=== PATIENT | female | born 1990 | race Caucasian/White ===

== ENCOUNTER 2017-05-23 15:40 | Emergency (ER) | payer OTHER ==
[2017-05-23] MEDS ORDERED: HYDROmorphone* 1 MG/ML 1 ML SYR IV ONE ×2 (17:38→21:29)
[2017-05-23] MEDS ORDERED: NS 0.9% 1000 ML* 1,000 ML IV ONE ×2 (17:38→21:29)
[2017-05-23] MEDS ORDERED: Ondansetron INJ* 2 MG/ML VIAL IV ONE ×2 (17:38→21:29)
[2017-05-23 17:46] LABS: Hematocrit 41 % (35-47); Hemoglobin 13.1 g/dl (12.0-16.0); Mean Corpuscular HGB Conc 32 g/dl (31-36); Mean Corpuscular Hemoglobin 29 pg (27-31); Mean Corpuscular Volume 90 fL (80-97); Mean Platelet Volume 10 um3 (7.4-10.4); Red Cell Distribution Width 13 % (10.5-15); White Blood Count 21.5 10^3/ul (3.5-10.8)
[2017-05-23 18:00] LABS: ALT 9 U/L (7-52); AST 15 U/L (13-39); Albumin 3.9 g/dL (3.2-5.2); Alkaline Phosphatase 47 U/L (34-104); Anion Gap 8 mmol/L (2-11); BUN/Creatinine Ratio 11.1 (8-20); Blood Urea Nitrogen 9 mg/dL (6-24); C Reactive Protein 45.86 mg/L (< 5.00); CO2 Carbon Dioxide 23 mmol/L (22-32); Calcium 9.3 mg/dL (8.6-10.3); Chloride 103 mmol/L (101-111); EGFR African American 109.9 (>60); EGFR Non-African American 85.5 (>60); Globulin 3.7 g/dL (2-4); Glucose 95 mg/dL (70-100); Lipase 21 U/L (11.0-82.0); Potassium 3.8 mmol/L (3.5-5.0); Sodium 134 mmol/L (133-145); Total Protein 7.6 g/dL (6.4-8.9)
[2017-05-23 18:02] LABS: Urine Bacteria Absent (Absent); Urine Bilirubin Negative (Negative); Urine Glucose Negative (Negative); Urine Nitrite Negative (Negative)
--- NOTE | 2017-05-23 19:16 | RAD ---
INDICATION: Flank pain. Diarrhea. COMPARISON: None TECHNIQUE: Noncontrast axial source images were acquired from the level hemidiaphragms to the symphysis pubis as part of CT imaging for renal stone. Lung bases: The lung bases are clear. Liver: The liver is enlarged with findings of hepatic steatosis. Noncontrast imaging shows no evidence of a hepatic mass or ductal dilatation. Gallbladder: There are no calcified gallstones. There is no evidence of wall thickening or pericholecystic fluid.. Spleen: The spleen is normal in size. The noncontrast CT appearance is normal. Pancreas: Noncontrast imaging shows no pancreatic mass or ductal dilitation. Adrenal glands: No masses are identified. Kidneys/Bladder: There is no evidence of nephrolithiasis or CT evidence of hydronephrosis. Noncontrast imaging shows no evidence of a renal mass. The bladder is unremarkable.. Adenopathy: There is no evidence of intraperitoneal or retroperitoneal adenopathy. Evaluation is limited without oral contrast. Fluid collections: There are no significant free or localized fluid collections. Vessels: The aorta and iliac vessels are normal in caliber. There are no significant atherosclerotic changes. The IVC appears normal Pelvic organs: The uterus and adnexa appear normal GI tract: Evaluation of the bowel is limited without oral contrast. The stomach, small bowel, and lower GI tract appear grossly normal. There are no obstructive findings. Soft tissues: No acute soft tissue abnormalities of the extraperitoneal abdomen or pelvis are identified. There is mild diastases of the rectus abdominis muscle fracture Osseous structures: There are no acute osseous findings. IMPRESSION: NO ACUTE CT FINDINGS. NO CT EVIDENCE OF UROLITHIASIS.
--- NOTE | 2017-05-23 21:28 | ED ---
Pollo Josue Thomas, scribed for Asim Nina MD on 05/23/17 at 1644 . Abdominal Pain/Female - HPI Summary HPI Summary: The pt is a 27 y/o F presenting to the ED c/o R-sided abd pain that began this AM at 06:30, which woke her up. The pain is rated 8/10. The pain is described as shooting and stabbing. She says that the pain comes in waves. The pain is aggravated by nothing. The pain is alleviated by lying down. Pt additionally c/ o diarrhea (watery) and decreased appetite. Pt denies dysuria, hematuria, and nausea. PMHx: previously healthy. PSHx: wisdom teeth removal. SHx: occasional drinking, no smoking, no illegal drugs. FHx: breast CA, DM. She is on control. Yesterday, she took the morning-after pill. Her last period was a few weeks ago. She did not eat today. - History of Current Complaint Chief Complaint: EDAbdPain Stated Complaint: ABD PAIN Time Seen by Provider: 05/23/17 16:32 Hx Obtained From: Patient Onset/Duration: Sudden Onset, Lasting Hours - 06:30 this AM, Still Present Timing: Constant - pain is constant, but it comes in waves Severity Currently: Severe Pain Intensity: 8 Pain Scale Used: 0-10 Numeric Location: Other - R side Character: Other: - Shooting, stsabbing Aggravating Factor(s): Other: - lying down Alleviating Factor(s): Nothing Associated Signs and Symptoms: Positive: Diarrhea - watery. Negative: Nausea, Other: - NEG: dysuria, hematuria Allergies/Adverse Reactions: Allergies Allergy/AdvReac Type Severity Reaction Status Date / Time No Known Allergies Allergy Verified 05/23/17 15:43 PMH/Surg Hx/FS Hx/Imm Hx Previously Healthy: Yes Endocrine/Hematology History: Denies: Hx Diabetes Cardiovascular History: Denies: Hx Hypertension - Surgical History Surgery Procedure, Year, and Place: wisdom teeth removal Infectious Disease History: Denies: Traveled Outside the [place] in Last 30 Days - Family History Known Family History: Positive: Diabetes, Other - POS: breast CA - Social History Alcohol Use: Occasionally Hx Substance Use: No Substance Use Type: Reports: None Hx Tobacco Use: No Smoking Status (MU): Never Smoked Tobacco Review of Systems Negative: Fever Positive: Abdominal Pain - onset today at 06:30, alleviated by lying down, shooting/stabbing, Diarrhea - watery, Other - POS: decreased appetite. Negative : Nausea Negative: dysuria, hematuria All Other Systems Reviewed And Are Negative: Yes Physical Exam Triage Information Reviewed: Yes Vital Signs On Initial Exam: Initial Vitals Temp Pulse Resp BP Pulse Ox 98.1 F 132 20 186/128 98 05/23/17 15:43 05/23/17 15:43 05/23/17 15:43 05/23/17 15:43 05/23/17 15:43 Vital Signs Reviewed: Yes Appearance: Positive: Well-Appearing, No Pain Distress Skin: Positive: Warm, Skin Color Reflects Adequate Perfusion, Dry Head/Face: Positive: Normal Head/Face Inspection Eyes: Positive: Normal ENT: Positive: Normal ENT inspection Neck: Positive: Supple, Nontender Respiratory/Lung Sounds: Positive: Clear to Auscultation, Breath Sounds Present Cardiovascular: Positive: RRR Abdomen Description: Positive: Soft, Other: - She is mildly tender to her R periumbilical region, but otherwise she is nontender. Bowel Sounds: Positive: Present Musculoskeletal: Positive: Normal Neurological: Positive: Normal Psychiatric: Positive: Normal, Affect/Mood Appropriate Diagnostics - Vital Signs Vital Signs Temp Pulse Resp BP Pulse Ox 05/23/17 15:43 98.1 F 132 20 186/128 98 - Laboratory Lab Results: Lab Results 05/23/17 05/23/17 05/23/17 Range/Units 17:15 17:15 17:15 WBC 21.5 H (3.5-10.8) 10^3/ul RBC 4.60 (4.0-5.4) 10^6/ul Hgb 13.1 (12.0-16.0) g/dl Hct 41 (35-47) % MCV 90 (80-97) fL MCH 29 (27-31) pg MCHC 32 (31-36) g/dl RDW 13 (10.5-15) % Plt Count 270 (150-450) 10^3/ul MPV 10 (7.4-10.4) um3 Neut % (Auto) 76.5 (38-83) % Lymph % (Auto) 18.9 L (25-47) % Mccormick % (Auto) 3.9 (1-9) % Eos % (Auto) 0.3 (0-6) % Baso % (Auto) 0.4 (0-2) % Absolute Neuts (auto) 16.4 H (1.5-7.7) 10^3/ul Absolute Lymphs (auto) 4.1 (1.0-4.8) 10^3/ul Absolute Monos (auto) 0.8 (0-0.8) 10^3/ul Absolute Eos (auto) 0.1 (0-0.6) 10^3/ul Absolute Basos (auto) 0.1 (0-0.2) 10^3/ul Absolute Nucleated RBC 0.01 10^3/ul Nucleated RBC % 0 Sodium 134 (133-145) mmol/L Potassium 3.8 (3.5-5.0) mmol/L Chloride 103 (101-111) mmol/L Carbon Dioxide 23 (22-32) mmol/L Anion Gap 8 (2-11) mmol/L BUN 9 (6-24) mg/dL Creatinine 0.81 (0.51-0.95) mg/dL Est GFR ( Amer) 109.9 (>60) Est GFR (Non-Af Amer) 85.5 (>60) BUN/Creatinine Ratio 11.1 (8-20) Glucose 95 (70-100) mg/dL Lactic Acid (0.5-2.0) mmol/L Calcium 9.3 (8.6-10.3) mg/dL Total Bilirubin 0.40 (0.2-1.0) mg/dL AST 15 (13-39) U/L ALT 9 (7-52) U/L Alkaline Phosphatase 47 (34-104) U/L C-Reactive Protein 45.86 H (< 5.00) mg/L Total Protein 7.6 (6.4-8.9) g/dL Albumin 3.9 (3.2-5.2) g/dL Globulin 3.7 (2-4) g/dL Albumin/Globulin Ratio 1.1 (1-3) Lipase 21 (11.0-82.0) U/L Beta HCG, Quant < 0.60 mIU/mL Urine Color Yellow Urine Appearance Cloudy Urine pH 5.0 (5-9) Ur Specific [place] 1.024 (1.010-1.030) Urine Protein Negative (Negative) Urine Ketones Negative (Negative) Urine Blood 1+ H (Negative) Urine Nitrate Negative (Negative) Urine Bilirubin Negative (Negative) Urine Urobilinogen Negative (Negative) Ur Leukocyte Esterase Trace H (Negative) Urine WBC (Auto) Trace(0-5/hpf) (Absent) Urine RBC (Auto) Trace(0-2/hpf) (Absent) Ur Squamous Epith Cells Present H (Absent) Urine Bacteria Absent (Absent) Urine Glucose Negative (Negative) 05/23/17 Range/Units 17:15 WBC (3.5-10.8) 10^3/ul RBC (4.0-5.4) 10^6/ul Hgb (12.0-16.0) g/dl Hct (35-47) % MCV (80-97) fL MCH (27-31) pg MCHC (31-36) g/dl RDW (10.5-15) % Plt Count (150-450) 10^3/ul MPV (7.4-10.4) um3 Neut % (Auto) (38-83) % Lymph % (Auto) (25-47) % Mccormick % (Auto) (1-9) % Eos % (Auto) (0-6) % Baso % (Auto) (0-2) % Absolute Neuts (auto) (1.5-7.7) 10^3/ul Absolute Lymphs (auto) (1.0-4.8) 10^3/ul Absolute Monos (auto) (0-0.8) 10^3/ul Absolute Eos (auto) (0-0.6) 10^3/ul Absolute Basos (auto) (0-0.2) 10^3/ul Absolute Nucleated RBC 10^3/ul Nucleated RBC % Sodium (133-145) mmol/L Potassium (3.5-5.0) mmol/L Chloride (101-111) mmol/L Carbon Dioxide (22-32) mmol/L Anion Gap (2-11) mmol/L BUN (6-24) mg/dL Creatinine (0.51-0.95) mg/dL Est GFR ( Amer) (>60) Est GFR (Non-Af Amer) (>60) BUN/Creatinine Ratio (8-20) Glucose (70-100) mg/dL Lactic Acid 1.7 (0.5-2.0) mmol/L Calcium (8.6-10.3) mg/dL Total Bilirubin (0.2-1.0) mg/dL AST (13-39) U/L ALT (7-52) U/L Alkaline Phosphatase (34-104) U/L C-Reactive Protein (< 5.00) mg/L Total Protein (6.4-8.9) g/dL Albumin (3.2-5.2) g/dL Globulin (2-4) g/dL Albumin/Globulin Ratio (1-3) Lipase (11.0-82.0) U/L Beta HCG, Quant mIU/mL Urine Color Urine Appearance Urine pH (5-9) Ur Specific [place] (1.010-1.030) Urine Protein (Negative) Urine Ketones (Negative) Urine Blood (Negative) Urine Nitrate (Negative) Urine Bilirubin (Negative) Urine Urobilinogen (Negative) Ur Leukocyte Esterase (Negative) Urine WBC (Auto) (Absent) Urine RBC (Auto) (Absent) Ur Squamous Epith Cells (Absent) Urine Bacteria (Absent) Urine Glucose (Negative) Result Diagrams: 05/23/17 17:15 05/23/17 17:15 Lab Statement: Any lab studies that have been ordered have been reviewed, and results considered in the medical decision making process. - CT CT Abd/Pel CT Interpretation: No Acute Changes - NO ACUTE CT FINDINGS. NO CT EVIDENCE OF UROLITHIASIS. CT Interpretation Completed By: Radiologist Abdominal Pain Fem Course/Dx - Course Course Of Treatment: The source of Ms. Goodwins pain is uncertain it has moved around a bit in her abdomen and is currently more epigastric that right flank. She has never been tender but does have a leukocytosis and a slight CRP elevation. She has had a few bouts of watery diarrhea also. I asked Dr. Tello to consult as her pain returned iin spite of medications and fluids. He agreed that this is more likely a colitis/enteritis and that D/C at this time would be appropriate. I will give her pain medications and anti-emetics. - Diagnoses Provider Diagnoses: Abdominal pain - Provider Notifications Discussed Care Of Patient With: Gibson Tello Time Discussed With Above Provider: 20:51 Instructed by Provider To: Other - I discussed patient care. Discharge - Discharge Plan Condition: Stable Disposition: HOME Patient Education Materials: Abdominal Pain (ED) Referrals: [facility] [Primary Care Provider] - 3 Days Additional Instructions: Follow up with your doctor at [place]. The documentation as recorded by the Pollo mckenzie Thomas accurately reflects the service I personally performed and the decisions made by me, Asim Nina MD.
[2017-05-23] MEDS ORDERED: Ondansetron ODT TAB* 4 MG PO ONE (21:31)
[2017-05-23] MEDS ORDERED: Dicyclomine CAP* 10 MG PO ONE (21:32)
[2017-05-23] MEDS ORDERED: oxyCODONE/Acetamin 5/325 MG* TAB PO ONE (23:10)
[2017-05-23 23:39] VITALS: BP 110/70
--- NOTE | 2017-05-24 00:56 | CONS ---
CC: Gibson Tello MD; [facility] CONSULTATION REPORT: DATE OF CONSULT: 05/23/17 CHIEF COMPLAINT: Abdominal pain. HISTORY OF PRESENT ILLNESS: The patient is a 27-year-old female in her usual state of health, who was perfectly well yesterday, eating normally, having normal bowel function, up to her usual activities. She had some food from [employer] last night, she said like a sub and some pizza with her friends. Nothing unusual, no one else is ill. She was awakened at 6:30 this morning with crampy abdominal pain and diarrhea. She went back to sleep and then was awakened again later with the same. She has had at least 5 bouts of diarrhea today, which she states is fairly watery. The pain was earlier more in the mid abdomen and right lower quadrant, now it is maybe a little bit more in the supraumbilical region. She continues to describe a persisting moderate level of pain with intermittent bouts of exacerbation. She has not had fever or chills. She has had at least 1 bout of diarrhea while here in the emergency room. She is not having any blood in the urine or stool to inspection. She has not had any accident, injury or trauma. She has no history of irritable bowel, colitis, spastic colon or the like. PAST MEDICAL HISTORY: Benign. No major medical illnesses. MEDICATIONS: She is on control pill and medication for ADHD. Recently used morning after pill. ALLERGIES: She denies medical allergies. SOCIAL HISTORY: She is a [employer] student at [employer]. She is a nonsmoker, rare drinker, does not use any drugs or illicit substances. REVIEW OF SYSTEMS: Benign. No chest pain, heart pain, angina, no cardiac disease. No pulmonary disease, emphysema, or bronchitis. No hepatobiliary disease. No diabetes, hepatitis, or jaundice. No other endocrine disease. No prior disease. No chronic kidney infections, kidney stones, or bladder infections. No GI history. No colitis, irritable bowel, spastic colon or the like. No major neuromuscular or psych issues. FAMILY HISTORY: Benign. No bleeding tendencies, anesthesia reactions or similar GI problems. PHYSICAL EXAMINATION: On examination, she is a well-developed, well-nourished obese female, consistent with stated age. Skin is warm and well perfused. She is not diaphoretic. She is not jaundiced. Vital signs show temperature of 98.7 , pulse of 108, respirations 20 and unlabored, blood pressure 135/91, O2 saturation 100%. Neck is supple without any adenopathy. Lungs are clear bilaterally. Heart is regular. Abdomen is obese and soft. She is tender primarily in the epigastrium, a little bit in both subcostal regions, not very impressive. There is no Salas sign, there is no guarding, there is no McBurney 's point tenderness, no suprapubic or groin tenderness. There is no Rovsing sign. No calf tenderness. No percussion tenderness. No palpable masses or hernias. There is an umbilical piercing in place that is in good condition. Extremities are well perfused and without edema. DIAGNOSTIC STUDIES/LAB DATA: Laboratory studies show white blood count elevated at 21,000 with normal hemoglobin and platelet count, slight left shift. Chemistries are unremarkable. C-reactive protein is elevated at 45. Liver chemistries are normal. HCG negative. Urinalysis with trace blood, but really not very impressive. She has had a CT scan, which does not show any inflammatory change anywhere in the abdomen. No appendicitis. No sign of cholecystitis. No sign of diverticulitis. No sign of bowel obstruction. IMPRESSION: A 27-year-old obese female with abdominal pain. By history and findings, I think this is most consistent with some form of gastroenteritis or colitis. I do not think she needs surgery and I suspect she could be treated as an outpatient; however, if her symptoms are too severe and she is not able to go home, medical admission may be required. Please let me know if I can provide any additional assistance. [id number]/[facility] #: [id number] SANJIV
== END 2017-05-24 00:06 | disposition home or self-care (01) ==
LOC: ED 15:40
DX: R10.9 Unspecified abdominal pain (principal); R19.7 Diarrhea, unspecified
CPT/HCPCS: 36415; 74176; 80053; 81003; 81015; 83605; 83690; 84702; 85025; 86140; 87086; 96374; 96375; 99283; A9270-GY; J1170; J2405